=== PATIENT | female | born 1955 | race Caucasian/White ===

== ENCOUNTER → 2020-05-17 14:05 | Outpatient (BNVA) | payer BC, SELFPAY | PROVIDERS: Family Provider Family Medicine; Referring Provider Nurse Practitioner; Visit Provider Podiatrist Foot & Ankle Surgery | DX: M79.672 Pain in left foot (principal); M79.671 Pain in right foot; M19.071 Primary osteoarthritis, right ankle and foot | CPT/HCPCS: 73630 ==

== ENCOUNTER 2020-12-05 08:59 | Outpatient (CLI) | payer BC, SELFPAY ==
--- NOTE | 2020-12-05 09:03 | MM_ITS ---
WS: [id number] DIAGNOSTIC BILATERAL DIGITAL MAMMOGRAM WITH CAD HISTORY: HX OF BREAST CA COMPARISON: 10/23/2019 and 10/17/2018, 10/16/2017 TECHNIQUE: Bilateral craniocaudad, mediolateral oblique, and mediolateral views are submitted. Comput er aided detection utilized. Breast composition: The breasts are extremely dense, which lowers the sensitivity of mammography. Sca ttered calcifications and dense fibroglandular asymmetries are stable. No distortion. MM/[place] [id number] IMPRESSION: BI-RADS: 2-Benign FOLLOW UP: 1 Year Follow-up
== END 2020-12-05 09:00 | disposition home or self-care (01) ==
LOC: RADSHAW 09:01
PROVIDERS: PCP Family Medicine; Visit Provider Family Medicine
DX: Z12.31 Encounter for screening mammogram for malignant neoplasm of breast (principal)
CPT/HCPCS: 77066

== ENCOUNTER 2022-03-01 07:07 | Outpatient (CLI) | payer MEDICARE, BC, SELFPAY ==
--- NOTE | 2022-03-01 07:17 | MM_ITS ---
WS: [id number] DIAGNOSTIC BILATERAL TOMOSYNTHESIS DIGITAL MAMMOGRAM WITH CAD HISTORY: HX OF BREAST CA COMPARISON: 12/05/2020 and 10/23/2019 TECHNIQUE: Bilateral craniocaudad, mediolateral oblique, and mediolateral views are submitted. Comput er aided detection utilized. Breast composition: The breasts are extremely dense, which lowers the sensitivity of mammography. Landon y dense fibroglandular densities throughout both breasts. Benign calcifications are present. Postsurg ical changes in the medial LEFT breast. Focal area of architectural distortion in the inferior medial LEFT breast at the site of the prior surgery. No associated mass. MM/[place] [id number] IMPRESSION: BI-RADS: 2-Benign FOLLOW UP: 1 Year Follow-up
== END 2022-03-01 07:08 | disposition home or self-care (01) ==
LOC: RADSHAW 07:08
PROVIDERS: PCP Family Medicine; Visit Provider Family Medicine
DX: Z85.3 Personal history of malignant neoplasm of breast (principal)
CPT/HCPCS: 77062

== ENCOUNTER 2022-09-26 10:34 | Emergency (ER) | payer MEDICARE, SELFPAY ==
[2022-09-26 10:48] VITALS: BP 116/72; PULSE 88; RESP 15; TEMP 37; O2SAT 97; BMI 27.4
--- NOTE | 2022-09-26 10:59 | PC.NURSE ---
pt reports having cold symptoms, vomiting, and diarrhea for last 3 days. reports this morning had a syncopal episode while on the toilet. reports she fell forward into the bathtub. superficial abrasion noted to left side of upper lip, bruising noted to nose and forehead. pt arrives alert and oriented, speech clear, speaking in complete sentences without difficulty. able to move all extremities. PERRL. A&Ox4. lung sounds clear. bowel sounds present x4. oral mucosa pink and dry.
--- NOTE | 2022-09-26 11:02 | CT_ITS ---
WS: [id number] CT FACIAL BONES TECHNIQUE: Noncontrast facial bones with coronal and sagittal reformatted images. CLINICAL INFORMATION: trauma COMPARISON: None. DLP: 1777.[address] scans at [facility] use at least one of these dose optimization techniques: automated e xposure control; mA and/or kV adjustment per patient size (includes targeted exams where dose is matc hed to clinical indication); or iterative reconstruction. FINDINGS: Tiny amount of fluid in the RIGHT maxillary sinus. Slight mucosal thickening ethmoid air cells. Masto id air cells well aerated. Frontal sinuses are well aerated. Normal sphenoid sinuses. Slight irregula rity distal nasal tuft with tiny nondisplaced fractures. Additional nondisplaced RIGHT nasal bone fra cture. Mild soft tissue edema. Normal lateral orbits. Normal zygoma. Normal pterygoid plates. No evidence of mandibular fracture dis location. Lamina papyracea appears intact. CT/CT facial bones wo con* [id number] IMPRESSION: 1. Tiny distal tuft nasal bone fractures. Additional nondisplaced RIGHT nasal bone fracture. Soft tissue edema 2. No other visualized acute facial fractures. 3. Small amount of fluid RIGHT maxillary sinus with mild mucosal thickening et hmoid air cells. 4. Mastoid air cells well aerated.
--- NOTE | 2022-09-26 11:02 | CT_ITS ---
WS: [id number] CT HEAD TECHNIQUE: Noncontrast CT of the head obtained from the skullbase to the vertex. CLINICAL INFORMATION: trauma COMPARISON: None. DLP: 1777.[address] scans at [facility] use at least one of these dose optimization techniques: automated e xposure control; mA and/or kV adjustment per patient size (includes targeted exams where dose is matc hed to clinical indication); or iterative reconstruction. FINDINGS: No evidence of intracranial hemorrhage or mass effect. Ventricular system and basal cisterns are trimble nt. Mild small vessel changes with mild parenchymal volume loss. No extra-axial fluid collections. No evidence of mass or mass effect. Small amount of fluid RIGHT maxillary sinus. Mild mucosal thickening ethmoid air cells. Mastoid air c ells well aerated. IMPRESSION: 1. No evidence of intracranial hemorrhage or mass effect. 2. Small amount of fluid RIGHT maxillary sinus. Mild mucosal thickening ethmoid air cells. 3. No acute intracranial findings.
--- NOTE | 2022-09-26 11:06 | ECG_ITS ---
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 Measurements Intervals [place] Rate: 85 P: 72 MT: 136 QRS: 16 QRSD: 86 T: 34 QT: 358 QTc: 426 Interpretive Statements SINUS RHYTHM POSSIBLE LEFT ATRIAL ENLARGEMENT [-0.1mV P-WAVE IN V1/V2] LOW QRS VOLTAGE IN PRECORDIAL LEADS [QRS DEFLECTION < 1.0 mV IN CHEST LEADS] INTERPRETATION BASED ON A DEFAULT AGE OF 40 YEARS No previous ECG available for comparison Electronically Signed On 09-26-2022 18:05:02 COMPRESSOR STATIONS SUPERINTENDENT by Mike Nevarez M.D. [id number]
--- NOTE | 2022-09-26 11:07 | W.ED.FALL ---
HPI - Fall General: Chief Complaint: Fall Stated Complaint: fall, Hit head, passed out Time Seen by Provider: 09/26/22 10:56 History of Present Illness: Patient comes in with cold symptoms and syncope. States that 3 days ago she started with fever, body aches, cough, congestion. States that her was diagnosed with flu the week before. States that she has also had vomiting and diarrhea for the past 2 days. States that this morning she went to the bathroom and passed out hitting her face and forehead. Denies chest pain. Associated symptoms-after fall: Reports headache(s); Denies abdominal pain, chest pain or neck pain Review of Systems Const: Reports: fever(s) and body aches Eyes: Denies: change in vision or blurry vision ENMT: Denies: throat pain or odynophagia Card: Denies: chest pain or palpitations Resp: Reports: dyspnea and productive cough GI: Reports: vomiting and diarrhea; Denies: abdominal pain or nausea : Denies: flank pain or dysuria Musc: Denies: neck pain or back pain Skin/Breast: Denies: rash or pruritus Neuro: Reports: headache(s); Denies: numbness in extremities Psych: Denies: anxiety or change in appetite Endo: Denies: polyuria or excessive sweating PFSH ED PFSH: Medical History (Updated 09/26/22 @ 12:57 by Fernando Denise MD) Acute rheumatoid arthritis Fibromyalgia H/O needle biopsy left breast High cholesterol History of cardiac murmur Hx of breast cancer Surgical History History of bilateral carpal tunnel release History of surgical removal of ganglion cyst Hx of hysterectomy Hx of tubal ligation S/P lumpectomy, left breast Family History Father Cancer Mother Hypertension Social History Smoking and tobacco status: never smoked Alcohol intake: never Current occupational status: retired Physical Exam Const: COMMON NORMALS: no acute distress, patient oriented x3, healthy appearing and alert HENMT: OTHER: contusion to her forehead, bruising and swelling to her nasal bridge, 0.5 cm superficial laceration just above her left upper lip. Dry mucous membranes Eye: COMMON NORMALS: Equal, round and reactive pupils present and EOMs intact bilaterally PUPIL: Yes Equal, round and reactive pupils present OTHER: Bilateral glassy eyed appearance Neck/C-Spine: COMMON NORMALS: full ROM and supple Resp: COMMON NORMALS: normal respiratory effort, No retractions and No use of accessory muscles Cardio: COMMON NORMALS: regular rate and regular rhythm RATE: regular rate RHYTHM: regular rhythm GI: COMMON NORMALS: Normal to inspection, nondistended, normoactive bowel sounds present, Soft to palpation and non-tender PALPATION: Yes Soft to palpation Back/Pelvis: COMMON NORMALS: thoracic and lumbar spine normal to inspection and no thoracic nor lumbar tenderness Extremity: COMMON NORMALS: normal to inspection and full ROM Neuro: COMMON NORMALS: patient oriented x3 SENSORIUM/ORIENTATION: Yes alert Psych: COMMON NORMALS: mental status grossly normal and cooperative Skin: COMMON NORMALS: no rashes or lesions noted and no wounds GENERAL SKIN EXAM: no rashes or lesions noted Course Vital Signs: Vital signs: Vital Signs Temperature 98.6 F 09/26/22 10:48 Pulse Rate 85 09/26/22 11:30 Respiratory Rate 21 H 09/26/22 11:30 Blood Pressure 118/77 09/26/22 11:30 Pulse Oximetry 95 09/26/22 11:30 Oxygen Delivery Me thod 09/26/22 10:48 MDM - Fall Medical Decision Making Patient comes in with cold symptoms and syncope. States that 3 days ago she started with fever, body aches, cough, congestion. States that her was diagnosed with flu the week before. States that she has also had vomiting and diarrhea for the past 2 days. States that this morning she went to the bathroom and passed out hitting her face and forehead. Denies chest pain. On physical exam she has bilateral glassy eyed appearance, contusion to her forehead, bruising and swelling to her nasal bridge, 0.5 cm superficial laceration just above her left upper lip. She has dry mucous membranes. Will check labs, CT, give IV fluids, and reassess. On reassessment I talked to the patient about the test results. Will encourage aggressive fluid hydration at home. Will discharge at this time with precautions to return for worsening or changing symptoms. Lab Data 09/26/22 11:13 09/26/22 11:[address] 09/26/22 11:02 IMPRESSION: 1. Tiny distal tuft nasal bone fractures. Additional nondisplaced RIGHT nasal bone fracture. Soft tissue edema 2. No other visualized acute facial fractures. 3. Small amount of fluid RIGHT maxillary sinus with mild mucosal thickening ethmoid air cells. 4. Mastoid air cells well aerated. Laboratory Results WBC 5.3 10^3/uL (4.0-10.0) 09/26/22 11:13 RBC 4.37 10^6/uL (4.1-5.3) 09/26/22 11:13 Hgb 13.3 g/dL (11.5-15.3) 09/26/22 11:13 Hct 40.5 % (37.0-47.0) 09/26/22 11:13 MCV 92.7 fl (81-99) 09/26/22 11:13 MCH 30.4 pg (28.0-34.0) 09/26/22 11:13 MCHC 32.8 g/dL (30.0-36.0) 09/26/22 11:13 RDW 13.4 % (12.1-15.1) 09/26/22 11:13 Plt Count 225 10^3/cmm (130-400) 09/26/22 11:13 MPV 10.1 fL (7.4-10.4) 09/26/22 11:13 Neut % (Auto) 83.1 % 09/26/22 11:13 Lymph % (Auto) 6.8 % 09/26/22 11:13 [place] % (Auto) 9.1 % 09/26/22 11:13 Eos % (Auto) 0.2 % 09/26/22 11:13 Baso % (Auto) 0.2 % 09/26/22 11:13 Neut # (Auto) 4.39 10^3/uL (1.8-7.7) 09/26/22 11:13 Lymph # (Auto) 0.4 10^3/uL (0.8-4.8) L 09/26/22 11:13 [place] # (Auto) 0.5 10^3/uL (0.2-0.9) 09/26/22 11:13 Eos # (Auto) 0.0 10^3/uL (0.0-0.8) 09/26/22 11:13 Baso # (Auto) 0.0 10^3/uL (0.0-0.1) 09/26/22 11:13 Nucleated RBC % (auto) 0 % 09/26/22 11:13 Nucleated RBCs # 0.0 /100WBC 09/26/22 11:13 Sodium 137 mmol/L (136-145) 09/26/22 11:13 Potassium 3.6 mmol/L (3.5-5.1) 09/26/22 11:13 Chloride 100 mmol/L (98-107) 09/26/22 11:13 Carbon Dioxide 25 mmol/L (22-29) 09/26/22 11:13 Anion Gap 15.6 (5-19) 09/26/22 11:13 BUN 11 mg/dL (8-23) 09/26/22 11:13 Creatinine 0.7 mg/dL (0.5-0.9) 09/26/22 11:13 GFR Calculation 84.0 mL/min (90-130) L 09/26/22 11:13 Glucose 107 mg/dL (65-115) 09/26/22 11:13 POC Glucose 115 mg/dL (70-110) H 09/26/22 11:03 Calculated Osmolality 284 mOsm/kg (285-295) L 09/26/22 11:13 Calcium 9.5 mg/dL (8.5-10.5) 09/26/22 11:13 Total Bilirubin 0.3 mg/dL (0.15-1.2) 09/26/22 11:13 AST 45 U/L (0-32) H 09/26/22 11:13 ALT 54 U/L (0-33) H 09/26/22 11:13 Alkaline Phosphatase 112 U/L (35-105) H 09/26/22 11:13 Total Protein 7.0 g/dL (6.6-8.7) 09/26/22 11:13 Albumin 4.1 g/dL (3.5-5.2) 09/26/22 11:13 Globulin 2.9 g/dL (1.3-4.6) 09/26/22 11:13 Discharge Plan Discharge Patient Disposition: Home Clinical Impression: URI (upper respiratory infection), Syncope, Dehydration, Closed fracture nasal bone Condition: Stable Prescriptions: No Action Xeljanz 5 mg tablet 5 mg PO BID tramadol 50 mg tablet 25 mg PO BEDTIME@20 cyclobenzaprine 10 mg tablet 10 mg PO BEDTIME simvastatin 20 mg tablet 20 mg PO BEDTIME lutein 10 mg tablet 10 mg PO DAILY Rx Instructions: give with meal/snack famotidine 20 mg tablet 20 mg PO BID albuterol sulfate 90 mcg/actuation HFA aerosol inhaler 2 puff INHALATION Q4H PRN (Reason: Shortness Of Breath) Vitamin D3 25 mcg (1,000 unit) Capsule 25 mcg PO BID diclofenac sodium 1 % Gel 2 g TOPICAL QID PRN (Reason: Pain) Rx Instructions: apply to single elbow, wrist or hand; for hand includes palm/fingers/back of hand magnesium oxide 400 mg magnesium Tablet 400 mg PO QAM Discharge Orders: Discharge ED (Routine); Ordered 09/26/22 Ordered By: Fernando Denise Referrals: Russel Ugarte MD [Primary Care Provider] - Coding Level of Care Code ED Supply Requirements Officer for Chg Fwd Exam Comprehensive
[2022-09-26 11:12] VITALS: BP 119/74
[2022-09-26 11:15] VITALS: BP 93/40; PULSE 87; RESP 14; O2SAT 94
[2022-09-26] MEDS: sodium chloride 0.9% 1,000 ML 999 ML IV (11:15)
[2022-09-26 11:16] LABS: Glucose Point of Care 115 mg/dL (70-110)
[2022-09-26 11:22] LABS: Basophils % 0.2 %; Eosinophils % 0.2 %; Hematocrit 40.5 % (37.0-47.0); Hemoglobin 13.3 g/dL (11.5-15.3); Lymphocytes # 0.4 10^3/uL (0.8-4.8); Lymphocytes % 6.8 %; Mean Corpuscular HGB Conc 32.8 g/dL (30.0-36.0); Mean Corpuscular Hemoglobin 30.4 pg (28.0-34.0); Mean Corpuscular Volume 92.7 fl (81-99); Mean Platelet Volume 10.1 fL (7.4-10.4); Monocytes # 0.5 10^3/uL (0.2-0.9); Monocytes % 9.1 %; Neutrophils # 4.39 10^3/uL (1.8-7.7); Neutrophils % 83.1 %; Nucleated Red Blood Cells % 0 %; Platelet Count 225 10^3/cmm (130-400); Red Blood Count 4.37 10^6/uL (4.1-5.3); Red Cell Distribution Width 13.4 % (12.1-15.1); White Blood Count 5.3 10^3/uL (4.0-10.0)
[2022-09-26 11:30] VITALS: BP 118/77; PULSE 85; RESP 21; O2SAT 95
[2022-09-26 11:43] LABS: Alanine Aminotransferase 54 U/L (0-33); Albumin Level 4.1 g/dL (3.5-5.2); Alkaline Phosphatase 112 U/L (35-105); Anion Gap 15.6 (5-19); Aspartate Amino Transferase 45 U/L (0-32); Blood Urea Nitrogen 11 mg/dL (8-23); Calcium 9.5 mg/dL (8.5-10.5); Carbon Dioxide 25 mmol/L (22-29); Chloride 100 mmol/L (98-107); Globulin 2.9 g/dL (1.3-4.6); Glucose 107 mg/dL (65-115); Osmolality Calculated 284 mOsm/kg (285-295); Potassium 3.6 mmol/L (3.5-5.1); Sodium 137 mmol/L (136-145); Total Bilirubin 0.3 mg/dL (0.15-1.2)
[2022-09-26 13:21] VITALS: BP 125/85; PULSE 80; RESP 15; O2SAT 94
== END 2022-09-26 13:24 | disposition home or self-care (01) ==
PROVIDERS: Emergency Provider Emergency Medicine; PCP Family Medicine
DX: S02.2XXA Fracture of nasal bones, initial encounter for closed fracture (principal); J06.9 Acute upper respiratory infection, unspecified; R55 Syncope and collapse; E86.0 Dehydration; W18.30XA Fall on same level, unspecified, initial encounter; Z85.3 Personal history of malignant neoplasm of breast
CPT/HCPCS: 36416; 70450; 70486; 80053; 82962; 85025; 93005; 96360; 99285; J7030

== ENCOUNTER 2023-03-05 09:04 | Outpatient (CLI) | payer MEDICARE, SELFPAY ==
--- NOTE | 2023-03-05 09:40 | MM_ITS ---
WS: [id number] DIAGNOSTIC BILATERAL DIGITAL BREAST TOMOSYNTHESIS MAMMOGRAPHY WITH CAD HISTORY: ANNUAL - HX PERSONAL BR CA COMPARISON: 10/16/2017, 03/01/2022, 10/23/2019 TECHNIQUE: Bilateral craniocaudad, mediolateral oblique, and mediolateral views are submitted with to mosynthesis and SM. Computer aided detection utilized. Breast composition: The breasts are extremely dense, which lowers the sensitivity of mammography.. De nse fibroglandular tissue. Area of architectural distortion along the medial LEFT breast at the site of the prior surgical excision. 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 Bilateral breast calcif ications. MM/[place] [id number] IMPRESSION: BI-RADS: 2-Benign FOLLOW UP: 1 Year Follow-up
== END 2023-03-05 09:05 | disposition home or self-care (01) ==
PROVIDERS: PCP Family Medicine; Visit Provider Family Medicine
DX: Z85.3 Personal history of malignant neoplasm of breast (principal)
CPT/HCPCS: 77062; G0279

== ENCOUNTER 2024-04-20 10:07 | Outpatient (CLI) | payer MEDICARE, SELFPAY ==
--- NOTE | 2024-04-20 10:20 | MM_ITS ---
WS: [id number] VIEWS: MLO, CC, and ML views both breasts. 3D digital tomosynthesis is also included in this exam. C omparisons: 06/15/2008, 12/15/2008, 06/27/2010, 06/29/2011, 07/11/2012, 09/02/2013, 10/08/2014, 10/10/2015, 10/15/2016, 10/16/2017, 10/17/2018, 10/23/2019, 12/05/2020, 03/01/2022, 03/05/2023. Findings: There was no sign of mass, architectural distortion or suspicious calcification in either breast. Sta ble appearing postoperative changes in the medial lower quadrant of the LEFT breast. The breasts are extremely dense which lowers the sensitivity of mammography. MM/[place] [id number] Impression: BI-RADS: 2-Benign finding. FOLLOW-UP: 1 Year Follow-up This mammogram was also analyzed by the Computer Aided Detection System R2 Imag e Section Hand Helper.
== END 2024-04-20 10:08 | disposition home or self-care (01) ==
PROVIDERS: PCP Family Medicine; Visit Provider Family Medicine
DX: Z85.3 Personal history of malignant neoplasm of breast (principal); R92.333 Mammographic heterogeneous density, bilateral breasts
CPT/HCPCS: 77062; G0279

== ENCOUNTER 2025-04-21 14:00 | Outpatient (CLI) | payer MEDICARE, SELFPAY ==
--- NOTE | 2025-04-21 14:05 | MM_ITS ---
WS: [id number] BILATERAL 3D TOMOSYNTHESIS DIGITAL DIAGNOSTIC MAMMOGRAPHY WITH CAD CLINICAL INFORMATION: MALIGNANT NEOPLASTIC DISEASE HISTORY: History of LEFT breast cancer COMPARISON: 2023, , 22, 21, 19 TECHNIQUE: Bilateral CC, MLO, and ML views. FINDINGS: The breasts are composed of heterogeneous fibroglandular density, which can limit the detection of small underlying mass lesions. Vascular calcification. Punctate and lucent centered calcifications. Postlumpectomy changes LEFT breast. No suspicious focal mass, asymmetry, calcifications, or architectural distortion. No evidence of malignancy. MM/MM diag tomosynthesis [id number] IMPRESSION: DENSITY: The breasts are heterogeneously dense, which may obscure small masses. BI-RADS: 2 - Benign FOLLOW UP: 1 Year Follow-up Recommend return to annual diagnostic mammography.
== END 2025-04-21 14:01 | disposition home or self-care (01) ==
PROVIDERS: PCP Family Medicine; Visit Provider Family Medicine
DX: C80.1 Malignant (primary) neoplasm, unspecified (principal); R92.333 Mammographic heterogeneous density, bilateral breasts; R92.1 Mammographic calcification found on diagnostic imaging of breast; Z98.890 Other specified postprocedural states
CPT/HCPCS: 77062; G0279